=== PATIENT | male | born 1975 | race American Indian/Alaskan Native ===

== ENCOUNTER 2020-12-23 21:07 | Emergency (ER) | payer SELFPAY ==
--- NOTE | 2020-12-23 22:06 | Emergency Department Report ---
ED Headache HPI - General Chief Complaint: Neuro Symptoms/Deficit Stated Complaint: LT FACIAL TINGLING/NUMBNESS;CHEST PAIN;HBP Time Seen by Provider: 12/23/20 22:02 - History of Present Illness Initial Comments: 45-year-old F Scottish male presents emerged department complaining of a few hour history of dull throbbing headache of unknown etiology associated with lightheadedness and dizziness. Reports no no fever chills or sweats. No known history of any Head Injury Location: global Recent Head Trauma: no recent headache/trauma Modifying Factors: improves with: exposure to light ([place]) Associated Symptoms: denies: facial pain, fever/chills, loss of consciousness, nausea/vomiting, nasal congestion, numbness in legs/feet, seizures, stiff neck, vision changes Allergies/Adverse Reactions: Allergies ibuprofen Allergy (Verified 12/23/20 21:30) Hives Home Medications: Ambulatory Orders Butalb/Acetaminophen/Caffeine [Fioricet 50-300-40 mg CAP] 1 cap PO Q8HR PRN #20 cap 12/24/20 amLODIPine 5 mg PO DAILY #30 tab 12/24/20 ED Review of Systems ROS: Stated complaint: LT FACIAL TINGLING/NUMBNESS;CHEST PAIN;HBP Other details as noted in HPI Comment: All other systems reviewed and negative ED Past Medical Hx - Past Medical History Previous Medical History?: No - Surgical History Past Surgical History?: Yes Additional Surgical History: Throat - Social History Smoking Status: Never Smoker Substance Use Type: None - Medications Home Medications: Home Medications Medication Instructions Recorded Confirmed Last Taken Type Butalb/Acetaminophen/Caffeine 1 cap PO Q8HR PRN #20 cap 12/24/20 Unknown Rx [Fioricet 50-300-40 mg CAP] amLODIPine 5 mg PO DAILY #30 tab 12/24/20 Unknown Rx ED Physical Exam - General Limitations: No Limitations General appearance: alert, in no apparent distress - Head Head exam: Present: atraumatic, normocephalic - Eye Eye exam: Present: normal appearance, PERRL, EOMI Pupils: Present: normal accommodation - ENT ENT exam: Present: normal exam, normal orophraynx, mucous membranes moist, TM's normal bilaterally - Neck Neck exam: Present: normal inspection, full ROM, lymphadenopathy - Respiratory Respiratory exam: Present: normal lung sounds bilaterally. Absent: respiratory distress, wheezes, rales, chest wall tenderness, accessory muscle use - Cardiovascular Cardiovascular Exam: Present: regular rate, normal rhythm. Absent: systolic murmur, diastolic murmur, rubs, gallop - GI/Abdominal GI/Abdominal exam: Present: soft, normal bowel sounds. Absent: guarding, hyperactive bowel sounds - Rectal Rectal exam: Present: deferred - Extremities Exam Extremities exam: Present: normal inspection, normal capillary refill. Absent: tenderness, joint swelling - Back Exam Back exam: Present: normal inspection. Absent: CVA tenderness (R), CVA tenderness (L) - Neurological Exam Neurological exam: Present: alert, oriented X3, CN II-XII intact, normal gait - Expanded Neurological Exam Expanded Neurological exam: Absent: ataxia, total aphasia Patient oriented to: Present: person, place, time Speech: Present: fluid speech Motor strength exam: RUE: 5, LUE: 5, RLE: 5, LLE: 5 Best Eye Response ([place]): (4) open spontaneously Best Motor Response (Evelyn): (6) obeys commands Best Verbal Response ([place]): (5) oriented Evelyn Total: 15 - Psychiatric Psychiatric exam: Present: normal affect, normal mood. Absent: flat affect, manic, homicidal ideation, suicidal ideation - Skin Skin exam: Present: warm, dry, intact, normal color. Absent: rash ED Course Vital Signs 12/23/20 12/23/20 12/23/20 21:24 22:59 23:31 Temperature 98.1 F 98.2 F Pulse Rate 75 72 64 Respiratory 20 16 16 Rate Blood Pressure 180/111 174/109 Blood Pressure 174/109 [Left] O2 Sat by Pulse 99 98 97 Oximetry 12/24/20 12/24/20 12/24/20 00:31 00:39 02:08 Temperature Pulse Rate 74 Respiratory 17 Rate Blood Pressure 171/115 171/115 Blood Pressure 128/73 [Left] O2 Sat by Pulse 98 Oximetry 12/24/20 02:11 Temperature 98.2 F Pulse Rate 77 Respiratory 19 Rate Blood Pressure Blood Pressure 128/73 [Left] O2 Sat by Pulse 100 Oximetry ED Medical Decision Making - Lab Data Result diagrams: 12/23/20 22:46 - Radiology Data Radiology results: report reviewed [address] [place] [id number] Cat Scan Report Signed Patient: LEXUS JACK MR#: [id number] : 1975 Acct:[id number] Age/Sex: 45 / M ADM Date: 12/23/20 Loc: ED Attending Dr: Ordering Physician: EFREN CHRISTOPHER Date of Service: 12/23/20 Procedure(s): CT head/brain wo con Accession Number(s): [id number] cc: EFREN CHRISTOPHER CT HEAD WITHOUT CONTRAST INDICATION : Headache and dizziness. TECHNIQUE: Axial, coronal and sagittal CT imaging was performed from the skull apex through the skull base without contrast. All CT scans at this location are performed using CT dose reduction for ALARA by means of automated exposure control. COMPARISON: None available. FINDINGS: PARENCHYMA: No mass, midline shift, hemorrhage, extraaxial collection or acute territorial infarction. VENTRICLES: Symmetric and normal in size. SOFT TISSUES: No significant abnormality of the included soft tissues/orbits. BONES: No acute osseous abnormality. SINUSES: No significant abnormality. ADDITIONAL FINDINGS: None. IMPRESSION: 1. No acute intracranial abnormality. Signer Name: Edwar Berrios MD Signed: 12/23/2020 11:10 PM Workstation Name: [id number] Transcribed By: MN Dictated By: Edwar Berrios MD Electronically Authenticated By: Edwar Berrios MD Signed Date/Time: 12/23/202309 DD/ 08 TD/TT: Print - Medical Decision Making #1 headache This patient presents with a headache most consistent with nonemergent headache. Differential diagnosis includes migraine versus tension type headache. No headache red flags. Neurologic exam without evidence of meningismus, focal neurologic findings.Based on the patient's history and physical there is very low clinical suspicion for significant intracranial pathology. The headache was NOT sudden onset, NOT maximal at onset, there are NO neurologic findings, the patient does NOT have a fever, the patient does NOT have any jaw claudication, the patient does NOT endorse a clotting disorder, patient DENIES any trauma or eye pain and the headache is NOT associated with dizziness or ataxia. Presentation not consistent with acute intracranial bleed to include SAH (lack of risk factors, headache history). Presentation not consistent with acute [employer] infection to include meningitis or brain abscess, Temporal arteritis unlikely, as is acute angle closure glaucoma given history and physical findings. Presentation not consistent with other acute, emergent causes of headache at this time. Plan to treat symptomatically with pain medication. No indication for imaging/LP at this time. Plan: pain medication, CT brain no acute process, serial reassessment #2 hypertension Presents to the emergency department complaining of high blood pressure. Patient is otherwise asymptomatic without confusion, chest pain, hematuria, or SOB. BP today is ___initially in the 170s over the 115's blood pressure improved to the 120s over the 70s Patient is not currently on medication Doubt CV, AMI, heart failure, renal infarction or failure or other end organ damage. Disposition:Discussed with patient their elevated blood pressure and need for close outpatient management of their hypertension. Will provide a prescription for the patients previous antihypertensive medication and arrange for the patient to follow up in a primary care clinic Disposition: Discussed with patient their elevated blood pressure and need for close outpatient management of their hypertension. Will provide a prescription for amlodipine 5mg PO daily and arrange for the patient to follow up in a primary care clinic Critical care attestation.: If time is entered above; I have spent that time in minutes in the direct care of this critically ill patient, excluding procedure time. ED Disposition Clinical Impression: Cephalgia, HTN (hypertension) Disposition: DC-01 TO HOME OR SELFCARE Is pt being admited?: No Does the pt Need Aspirin: No Condition: Stable Instructions: Hypertension (ED) Prescriptions: amLODIPine 5 mg PO DAILY #30 tab Butalb/Acetaminophen/Caffeine [Fioricet 50-300-40 mg CAP] 1 cap PO Q8HR PRN #20 cap PRN Reason: Headache Referrals: PRIMARY CARE, [Primary Care Provider] - 3-5 Days
--- NOTE | 2020-12-23 23:15 | Cat Scan Report ---
CT HEAD WITHOUT CONTRAST INDICATION : Headache and dizziness. TECHNIQUE: Axial, coronal and sagittal CT imaging was performed from the skull apex through the skul l base without contrast. All CT scans at this location are performed using CT dose reduction for ALA RA by means of automated exposure control. COMPARISON: None available. FINDINGS: PARENCHYMA: No mass, midline shift, hemorrhage, extraaxial collection or acute territorial infarctio n. VENTRICLES: Symmetric and normal in size. SOFT TISSUES: No significant abnormality of the included soft tissues/orbits. BONES: No acute osseous abnormality. SINUSES: No significant abnormality. ADDITIONAL FINDINGS: None. IMPRESSION: 1. No acute intracranial abnormality. Signer Name: Edwar Berrios MD Signed: 12/23/2020 11:10 PM Workstation Name: [id number]
[2020-12-23 23:24] LABS: Basophils % (Auto) 0.5 % (0.0-1.8); Eosinophils # (Auto) 0.1 K/mm3 (0.0-0.4); Hematocrit 47.5 % (35.5-45.6); Hemoglobin 16.4 gm/dl (11.8-15.2); Lymphocytes # (Auto) 1.9 K/mm3 (1.2-5.4); Lymphocytes % (Auto) 23.9 % (13.4-35.0); Mean Corpuscular HGB Conc 35 % (32-34); Mean Corpuscular Volume 84 fl (84-94); Monocytes # (Auto) 0.6 K/mm3 (0.0-0.8); Monocytes % (Auto) 7.1 % (0.0-7.3); Platelet Count 195 K/mm3 (140-440); Red Blood Count 5.66 M/mm3 (3.65-5.03); Red Cell Distribution Width 14.9 % (13.2-15.2)
[2020-12-23 23:33] LABS: Creatine Kinase MB 2.3 ng/mL (0.0-4.0)
[2020-12-23 23:51] LABS: INR 0.97 (0.87-1.13)
[2020-12-23 23:52] LABS: Partial Thromboplastin Time 30.3 Sec. (24.2-36.6); Thrombin Time 17.2 Sec. (15.1-19.6)
[2020-12-24] MEDS ORDERED: diphenhydrAMINE 50 MG/ML VIAL IV STA (00:21)
[2020-12-24] MEDS ORDERED: METOCLOPRAMIDE 10 MG/2 ML INJ IV STA (00:21)
[2020-12-24] MEDS ORDERED: dexAMETHasone 4 MG/ML VIAL IV ONE (00:21)
[2020-12-24] MEDS ORDERED: cloNIDine 0.2 MG TAB PO STA (00:21)
[2020-12-24] MEDS ORDERED: SODIUM CHLORIDE 0.9% 1000 ML 1,000 ML IV ONE (00:21)
[2020-12-24 02:08] VITALS: BP 128/73
--- NOTE | 2020-12-27 17:35 | Electrocardiograph Report ---
[facility] Test Date: 2020-12-23 Test Time: 23:32:44 Pat Name: LEXUS JACK Department: Room: Gender: M [employer]: BRAD : 1975 Requested By: LORENA POOL Order Number: [id number] Reading MD: Mojgan Pop Measurements Intervals [place] Rate: 67 P: 50 [place]: 155 QRS: -2 QRSD: 96 T: 4 QT: 405 QTc: 429 Interpretive Statements Gender not entered, assumed to be male for purpose of ECG interpretation Sinus rhythm Probable left atrial enlargement No previous ECG available for comparison Electronically Signed On 12-27-2020 17:34:40 EDT by Mojgan Pop
== END 2020-12-24 03:21 | disposition home or self-care (01) ==
LOC: ED 21:07
DX: R51.9 Headache, unspecified (principal); I10 Essential (primary) hypertension; R42 Dizziness and giddiness; Z98.890 Other specified postprocedural states; Z79.899 Other long term (current) drug therapy; Z88.6 Allergy status to analgesic agent
CPT/HCPCS: 36415; 70450; 82550; 82553; 84484; 85025; 85610; 85670; 85730; 93005; 96361; 96374; 96375; 99284; J1100; J1200; J2765; J7030